=== PATIENT | female | born 1940 | race Caucasian/White ===

== ENCOUNTER → 2016-10-02 | Day surgery (SDC) | payer OTHER ==
[~2016-10-02] MED LIST: BUPIVACAINE/EPINEPHRINE 0.5% 50 ML VIAL ONE; LACTATED RINGER'S 1000 ML INJ 1,000 ML ONE; MIDAZOLAM HCL 2 MG/2 ML VIAL ONE; ONDANSETRON HCL 4 MG/2 ML VIAL IV PUSH ONE; PROPOFOL 200 MG/20 ML AMP IV ONE; TRIAMCINOLONE ACETONIDE 40 MG/ML VIAL ONE; ceFAZolin INJ 1,000 MG VIAL ONE
--- NOTE | 2016-10-03 12:57 | MP ---
cc: JAY JAY ZAMORA DATE OF SURGERY 10/02/2016 PREOPERATIVE DIAGNOSIS Right knee medial meniscal tear. 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 SURGEON Jay Jay Zamora MD DIRECTOR LEARNING ABEL Mendes The surgical procedure was assisted by my Advanced Registered Nurse Practitioner. My FOOD INSPECTOR presence was necessary throughout this case for the manipulation and positioning of the surgical extremity. My FOOD INSPECTOR was assisting me throughout the duration of this procedure. The skill set of an Advance Registered Nurse Practitioner was medically necessary to complete this procedure. During the surgical case, the ophthalmology surgical technician was working at the back table and the Advance Registered Nurse Practitioner was directly assisting me. PROCEDURE Right knee arthroscopic partial medial and lateral meniscectomy with chondroplasty of the medial femoral condyle. ANESTHESIA General TOURNIQUET TIME Zero minutes ESTIMATED BLOOD LOSS Minimal PROCEDURE The patient was brought back to the operative theater. She received intravenous Ancef. The right lower extremity was prepped and draped in the usual sterile fashion. We made a standard inferolateral incision followed by inferomedial incision portal site under spinal needle visualization. We found significant synovitis in the suprapatellar pouch. The patellofemoral joint had minimal grade one chondromalacia. The medial compartment showed complex tearing of the medial meniscus encompassing part of the posterior horn and midbody The tears were complex in nature. There was diffuse grade 2 with small areas of grade 3 chondromalacia in the medial femoral condyle. We used an oscillating shaver to smooth down the edges of the cartilage on the medial femoral condyle. We then used a combination of several meniscal biters and oscillating shaver to perform a partial medial meniscectomy around the mid body and posterior horn removing approximately 25% of the meniscus. We had stable edges now. The anterior cruciate ligament was intact. The lateral compartment had a small area of grade 2 chondromalacia. There was some inner edge tearing of the medial meniscus by the midbody and the anterior horn. We used an oscillating shaver to perform a partial medial meniscectomy resecting approximately 10% of the meniscus. We found that there was a loose body in the lateral gutter which was removed and then the medial gutter had no loose bodies. We removed all debris within the knee. We then gave interarticular injection of 30 cc of quarter percent Marcaine with 40 mg of Kenalog as per protocol. The arthroscopic portals were closed with 2-0 Vicryl followed by 3-0 nylon. Postop plan is weight-bear as tolerated, early range of motion. MD CHERYL Borrego/SHRUTHI /1:26 PM /12:43 PM
== END | disposition home or self-care (01) ==
LOC: ESDC 11:25
PROVIDERS: ATTEND Orthopaedic Surgery
DX: S83.231A Complex tear of medial meniscus, current injury, right knee, initial encounter (principal); S83.281A Other tear of lateral meniscus, current injury, right knee, initial encounter; M94.261 Chondromalacia, right knee
CPT/HCPCS: 01400; 29880; J0690; J2250; J2405; J3010; J3301; J7120